=== PATIENT | male | born 1945 | race Caucasian/White ===

== ENCOUNTER 2018-01-30 06:47 | Day surgery (SDC) | payer MEDICARE, OTHER ==
[~2018-01-30 06:47] MED LIST: Buffered Lidocaine 0.9% SYRIN* 5 ML/SYR SYRINGE INTRADERM ONE
[2018-01-30] MEDS ORDERED: Bacitracin OINTMENT* 0.5% 0.5 oz TUBE ONE (07:55)
[2018-01-30] MEDS ORDERED: Lidocaine 4% TOPICAL* 50 ML TOP.SOLN ONE (07:55)
[2018-01-30] MEDS ORDERED: Oxymetazoline 0.05% NASAL SPR* 15 ML BTL ONE (07:55)
[2018-01-30] MEDS ORDERED: Lidocaine 1% MPF wEPI 200,000* 30 ML SDV ONE (07:55)
[2018-01-30] MEDS ORDERED: fentaNYL* 50 MCG/ML 2 ML VIAL (100 MCG VIAL) ONE ×2 (08:14→08:16)
[2018-01-30] MEDS ORDERED: Midazolam* 1 MG/ML 2 ML VIAL (2 MG) ONE (08:15)
[2018-01-30] MEDS ORDERED: Succinylcholine* 20 MG/ML 10 ML VIAL ONE (08:46)
[2018-01-30] MEDS ORDERED: Ondansetron INJ* 2 MG/ML VIAL ONE (08:46)
[2018-01-30] MEDS ORDERED: Propofol* 10 MG/ML 20 ML BTL IV PUSH ONE (08:46)
[2018-01-30] MEDS ORDERED: Dexamethasone IV* 4 MG/ML 1 ML (4 MG) ONE (08:46)
[2018-01-30] MEDS ORDERED: Lidocaine 2% PF * 5 ML VIAL ONE (08:46)
[2018-01-30] MEDS ORDERED: Ibuprofen TAB* 600 MG PO PRN (09:07)
[2018-01-30] MEDS ORDERED: Acetaminophen TAB* 325 MG PO PRN (09:07)
[2018-01-30] MEDS ORDERED: Naloxone* 0.4 MG/ML 1 ML VIAL IV PRN (09:07)
[2018-01-30 10:01] VITALS: BP 128/84
--- NOTE | 2018-01-30 21:06 | OP ---
DATE OF OPERATION: 01/30/18 - SDS DATE OF : 45 SURGEON: Raji Linda MD. ANESTHESIA: General laryngeal mask anesthesia. PRE-OP DIAGNOSES: Chronic sinusitis with nasal polyposis. POST-OP DIAGNOSES: Chronic sinusitis with nasal polyposis. OPERATIVE PROCEDURE: Bilateral endoscopic nasal polypectomy. COMPLICATIONS: None. SPECIMENS: Left and right nasal polyps. 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 DESCRIPTION OF PROCEDURE: The patient was taken to the operating room, placed in a supine position on the operating room table. General anesthesia induced. He was maintained with laryngeal mask airway anesthesia. Nose was packed with cottonoids impregnated with oxymetazoline and 4% lidocaine and draped in a sterile fashion. The packs were removed. He had more polyps on the right in this frontal recess ostiomeatal unit and the anterior and posterior ethmoid regions. These were injected with 1% lidocaine with 1:100,000 epinephrine. Some frontal sinus recess polyps were injected on the left side. Using the straight and 45 degree Blakesley, I did the polypectomy. This left him with previous extensive resections that he had without any evidence of disease. The surgery was done bilaterally to remove the polyps. The pathology was sent for evaluation. Extubated uneventfully and transferred to recovery room in stable condition. [id number]/[facility] #: [id number] EMIL
== END 2018-01-30 10:22 | disposition home or self-care (01) ==
LOC: OR 06:47
PROVIDERS: ATTEND Otolaryngology
DX: J33.8 Other polyp of sinus (principal); Z85.818 Personal history of malignant neoplasm of other sites of lip, oral cavity, and pharynx; J30.2 Other seasonal allergic rhinitis
CPT/HCPCS: 88304; A9270-GY; J0330; J1100; J2001; J2250; J2405; J2704; J3010

== ENCOUNTER 2019-05-23 09:29 | Observation (INO) | payer MEDICARE, OTHER ==
--- OUTSIDE RECORDS SUMMARY | 2019-05-23 09:52 | XMS REPORT | Continuity of Care Document ---
:1945 External Reference #:[id number] Author Name Adeola Neumann PA-C Address [address] [place] [address] Care Team Providers Name Role Phone Atilio ERICKSON, Saul Care Team Information Skilled Nursing Facilities Professional Unavailable Og Corcoran M.D. Primary Care Physician Unavailable Payers Date Identification Numbers Payment Provider Subscriber Policy Number: [id number] [place] Apple Bright PayID: [id number] [address] [place] [address] Policy Number: [id number] [facility] Apple Bright Group Name: [employer] Benefit Plans [address] PayID: [id number] [place] [address] Problems Active Problems Provider Date Esophageal dysphagia Apple Linda M.D. 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 Onset: 09/22/2014 Asymmetrical sensorineural hearing loss Apple Linda M.D. 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 Tobacco Use Start: Unknown Never Smoked Cigarettes Tobacco Use Start: Unknown has never smoked cigars Tobacco Use Start: Unknown has never smoked a pipe Smokeless Tobacco has never used smokeless tobacco ETOH Use Current Alcohol Use Occasionally Tobacco Use Start: Unknown Patient has never smoked Smoking Status Reviewed: 03/04/19 Patient has never smoked Allergies, Adverse Reactions, Alerts Active Allergies Reaction Severity Comments Date Augmentin 04/03/2007 Amoxicillin 06/22/2014 Clindamycin 01/23/2018 Medications Active Medications SIG Qnty Indications Ordering Provider Date Sulfamethoxazole/Trim take 1 pill 2 28tabs Apple Freitas 03/06/2019 ethoprim DS times a day for Tierra Linda 800-160mg 14 days. Tablets Ofloxacin (Otic) instill 3-4 drops 10ml H90.3 Apple Freitas 03/04/2019 0.3% to the right ear Tierra Linda Solution 2 times a day for 10 days. Fluticasone 2 sprays in each 48gm J33.8 Apple Freitas 03/26/2018 Propionate nostril everyday Tierra Linda 50mcg/Act Suspension Lumigan apply to eyes qhs Darci Calderon Timolol Maleate apply to eyes bid Darci Calderon 0.5% MD Solution Benadryl Allergy as needed Unknown 25mg Capsules Rosuvastatin Calcium Og Corcoran MYolie 5mg Tablets History Medications Levofloxacin 1 by mouth 10tabs J01.30 Apple Freitas 12/05/2017 - 500mg every day Tierra Linda 12/17/2017 Tablets Benzonatate take 1 capsue 180caps R05 Apple Freitas 06/25/2017 - 200mg by 3 times per Tierra Linda 12/05/2017 Capsules day for as needed for cough Atrovent 2 sprays in 1units 472.0 Apple Freitas 10/10/2010 - 0.06% each nostril Tierra Linda 06/22/2014 Solution qid prn rhinitis Flonase 2 sprays in 1units Apple Freitas 03/21/2006 - 50mcg/[place] each nostril qd Tierra Linda 04/03/2007 Suspension Singulair 1 po qd 30tabs 477.8 Apple Freitas 03/21/2006 - 10mg Tierra Linda 04/03/2007 Tablets Glucosamine Unknown 03/20/2006 - Chondroitin 11/11/2008 Proscar Unknown - 5mg Tablets 04/03/2007 None Unknown - 06/22/2014 Antihistamine prn Self - Decongestant 05/09/2017 Levofloxacin 1 by mouth Og Corcoran M.D. - 500mg every day 09/26/2016 Tablets Hydrocodone Andres Pio - Bitartrate/Acetamino M.DAdal 05/09/2017 phen 5-300mg Tablets Levofloxacin 1 by mouth 10tabs Og Corcoran M.D. - 500mg every day 09/26/2016 Tablets Flonase Allergy as needed Self - Relief 12/05/2017 50mcg/Act Suspension Sildenafil Citrate Og Corcoran M.D. - 12/05/2017 100mg Tablets Rosuvastatin Calcium Og Corcoran M.D. - 12/05/2017 5mg Tablets Vital Signs Date Vital Result Comment 05/16/2019 2:05pm Weight 224.00 lb Weight 101.606 kg Height 77 inches 6'5" Height in cm's 195.6 cm BMI (Body Mass Index) 26.6 kg/m2 03/04/2019 10:58am Body Temperature 97.4 F Weight 224.00 lb Weight 101.606 kg Height 77 inches 6'5" Height in cm's 195.6 cm BMI (Body Mass Index) 26.6 kg/m2 09/17/2018 8:37am Weight 224.00 lb Weight 101.606 kg Height 77 inches 6'5" Height in cm's 195.6 cm BMI (Body Mass Index) 26.6 kg/m2 07/10/2018 2:11pm Weight 223.00 lb Weight 101.153 kg Height 77 inches 6'5" Height in cm's 195.6 cm BMI (Body Mass Index) 26.4 kg/m2 03/26/2018 2:43pm Weight 223.00 lb Weight 101.153 kg Height 77 inches 6'5" Height in cm's 195.6 cm BMI (Body Mass Index) 26.4 kg/m2 01/23/2018 3:18pm BP Systolic 153 mmHg BP Diastolic 95 mmHg Heart Rate 82 /min Respiratory Rate 18 /min Weight 223.00 lb Weight 101.153 kg Height 77 inches 6'5" Height in cm's 195.6 cm BMI (Body Mass Index) 26.4 kg/m2 12/05/2017 4:00pm Respiratory Rate 17 /min Weight 220.00 lb Weight 99.792 kg Height 77 inches 6'5" Height in cm's 195.6 cm BMI (Body Mass Index) 26.1 kg/m2 06/25/2017 2:23pm BP Systolic 160 mmHg BP Diastolic 97 mmHg Heart Rate 70 /min Respiratory Rate 17 /min Weight 220.00 lb Weight 99.792 kg Height 77 inches 6'5" Height in cm's 195.6 cm BMI (Body Mass Index) 26.1 kg/m2 05/09/2017 9:39am BP Systolic 155 mmHg BP Diastolic 101 mmHg Heart Rate 72 /min Respiratory Rate 17 /min Weight 220.00 lb Weight 99.792 kg Height 77 inches 6'5" Height in cm's 195.6 cm BMI (Body Mass Index) 26.1 kg/m2 BP Systolic Sitting 139 mmHg BP Diastolic Sitting 91 mmHg 09/26/2016 2:30pm BP Systolic 126 mmHg BP Diastolic 69 mmHg Heart Rate 88 /min Respiratory Rate 17 /min Weight 211.00 lb Weight 95.710 kg Height 77 inches 6'5" Height in cm's 195.6 cm BMI (Body Mass Index) 25.0 kg/m2 06/12/2016 11:23am BP Systolic 144 mmHg BP Diastolic 85 mmHg Heart Rate 75 /min Respiratory Rate 17 /min Weight 211.00 lb Weight 95.710 kg Height 77 inches 6'5" Height in cm's 195.6 cm BMI (Body Mass Index) 25.0 kg/m2 09/22/2014 9:55am BP Systolic 144 mmHg BP Diastolic 85 mmHg Heart Rate 83 /min Respiratory Rate 17 /min Weight 215.00 lb Weight 97.524 kg Height 77 inches 6'5" Height in cm's 195.6 cm BMI (Body Mass Index) 25.5 kg/m2 07/13/2014 10:21am BP Systolic 140 mmHg BP Diastolic 89 mmHg Heart Rate 72 /min Respiratory Rate 17 /min Weight 215.00 lb Weight 97.524 kg Height 77 inches 6'5" Height in cm's 195.6 cm BMI (Body Mass Index) 25.5 kg/m2 07/13/2014 9:43am BP Systolic 170 mmHg BP Diastolic 96 mmHg Heart Rate 81 /min Respiratory Rate 17 /min Weight 249.00 lb Weight 112.946 kg Height 69.50 inches 5'9.50" Height in cm's 176.5 cm BMI (Body Mass Index) 36.2 kg/m2 06/22/2014 2:38pm BP Systolic 140 mmHg BP Diastolic 85 mmHg Heart Rate 84 /min Respiratory Rate 17 /min Weight 215.00 lb Weight 97.524 kg Height 77 inches 6'5" Height in cm's 195.6 cm BMI (Body Mass Index) 25.5 kg/m2 11/11/2008 2:23pm BP Systolic 137 mmHg BP Diastolic 80 mmHg Heart Rate 82 /min Respiratory Rate 16 /min 04/03/2007 4:19pm BP Systolic 117 mmHg BP Diastolic 80 mmHg Heart Rate 87 /min Respiratory Rate 16 /min 03/21/2006 2:13pm BP Systolic 117 mmHg BP Diastolic 67 mmHg Heart Rate 75 /min Respiratory Rate 16 /min Results Test Date Facility Test Result H/L Range Note Wound [facility] Wound/Misc SEE RESULT 1 Culture/Sensi 9 c/o Department of Laboratories [place] [address] Stain [phone] Laboratory test [facility] Surgical SEE RESULT 2 finding 8 c/o Department of Laboratories Pathology [place], [place] [address] [phone] Creatinine [facility] Creatinine 1.00 mg/dL N 0.67-1.17 4 c/o Department of Laboratories [place], [place] [id number] [phone] Egfr Non- 74.3 N >60 Egfr 95.6 N >60 3 Xray 07/27/2006 [facility] [place] [facility] [place] Soft Tissue Neck With no tumor [address] Contrast [place], [place] [address] [phone] Xray 06/28/2006 [facility] CT Soft Tissue Neck no disease [address] [place] [address] [phone] CT Abdomen With Contrast lymphadenopathy CT Chest With Contrast lymphadenopathy Laboratory test finding 06/26/2006 [facility] BUN normal c/o [place] [address] [phone] Creatinine normal Laboratory test 06/26/2006 [facility] Other lab test negative finding c/o Department of Laboratories - see note [place] [address] [phone] 1 SEE RESULT BELOW Name: APPLE BRIGHT : [address]: Adeola Neumann PA-C Acct: [id number] Unit: [id number] AGE: 73 Location: [facility] Re03/04/19 SEX: M Status: REG REF SPEC: [id number] LEE: 03/04/19-1113 [facility] DR: Adeola Negrete REQ: [id number] RECD: 03/04/19 STATUS: COMP _ SOURCE: MISC SOURC SPDESC: ORDERED: Culture Stain COMMENTS: Right ear otorrhea [id number] Specimen Description Right ear otorrhea Procedure Result Reported Site Wound/Misc Gram Stain Final 03/04/19- 1742 ML 1+ Epithelial Cells 4+ Neutrophils 1+ Gram Positive Cocci Wound/Misc Culture Final 03/06/19- 0910 ML Organism 1 MRSA Quantity 2+ 1. MRSA M.I.C. RX --------- ------ Penicillin >=0.5 R Clindamycin <=0.25 S Erythromycin >=8 R Gentamicin <=0.5 S Linezolid 2 S Oxacillin >=4 R * Quinupristin/Dalfopristin <=0.25 S Rifampin <=0.5 S Tetracycline <=1 S Doxycycline - Deduced S * Minocycline - Deduced S Trimethoprim/Sulfamethoxazole <=10 S Vancomycin 1 S Imipenem-Deduced R CONTINUED ON NEXT PAGE DEPARTMENT OF PATHOLOGY, [address] [place] [address] Ajay Hernandez M.D. Director [facility] # [id number] Patient: APPLE BRIGHT [id number] (Continued) Specimen: [id number] Collected: 04/30/19-1113 Received: 03/04/19-1612 (Continued) Procedure Result Reported Site Wound/Misc Culture Final (continued) 03/06/19909 1. MRSA (continued) M.I.C. RX --------- ------ * Ampicillin/Sulbactam-Deduced R Cefazolin-Deduced R * These antibiotics are not available in the [facility] Formulary Contact the Microbiology Department for any additional antibiotic reporting. * ML - Main Lab . END OF REPORT DEPARTMENT OF PATHOLOGY, [address] [place] [address] Ajay Hernandez M.D. Director [facility] # [id number] 2 SEE RESULT BELOW Name: APPLE BRIGHT : [address]: Apple Linda MD Acct: [id number] Unit: [id number] AGE: 72 Location: OR Re01/30/18 SEX: M Status: DEP SDC SPEC: [id number] LEE: 01/30/1825 [facility] DR: Apple Linda MD REQ: [id number] RECD: 01/30/18 STATUS: SOUT _ ORDERED: LEVEL 3/2 FINAL DIAGNOSIS 1. Left nasal cavity, excision: -- Benign sinonasal polyps. 2. Right nasal cavity, excision: -- Benign sinonasal polyps. PRE-OPERATIVE DIAGNOSIS Polyp of sinus, right; bilateral sinusitis GROSS DESCRIPTION 1. The specimen is received in formalin labeled, Left Nasal Polyps, and consists of a 1.1 x 1.1 x 0.5 cm aggregate of kelley-pink irregular to polypoid soft tissue fragments admixed with scant red-brown blood clot which is submitted entirely in one cassette. 2. The specimen is received in formalin labeled, Right Nasal Polyps, and consists of a 3.2 x 2.0 by up to 1.1 cm aggregate of kelley-pink irregular to polypoid soft tissue fragments admixed with scant red-brown blood clot. Entirely submitted, two cassettes. Signed (signature on file) Deann Silva MD 1002 END OF REPORT DEPARTMENT OF PATHOLOGY, [address] [place] [address] Ajay Hernandez M.D. Director [facility] # [id number] 3 Because ethnic data is not always readily available, this report includes an eGFR for both -Americans and non- Americans. The National Kidney Disease Education Program (NKDEP) does not endorse the use of the MDRD equation for patients that are not between the ages of 18 and 70, are , have extremes of body size, muscle mass, or nutritional status, or are non- or non-. According to the National Kidney Foundation, irrespective of diagnosis, the stage of the disease is based on the level of kidney function: Stage Description GFR(mL/min/1.73 m(2)) 1 Kidney damage with normal or decreased GFR 90 2 Kidney damage with mild decrease in GFR 60-89 3 Moderate decrease in GFR 30-59 4 Severe decrease in GFR 15-29 5 Kidney failure <15 (or dialysis) Procedures Date Code Description Status 05/16/2019 71387 Binocular Microscopy Completed 03/14/2019 01163 Nasopharyngoscopy Completed 03/04/2019 05848 Binocular Microscopy Completed 07/10/2018 80227 Auditory, Middle Ear, Other Procedure, Hospital Completed 01/30/2018 46793 Nasal Endoscopy W/ Debridement Completed 06/25/2017 32613 Demonstration/Eval. Of Patient Utilization Of Completed Spacer/Nebulizer 06/25/2017 85567 Inhalation Treatment Pressurized Or Nonpres.Acute Completed Airwy.Obstruct. 06/25/2017 56683 Bronchospasm Evaluation Completed 06/25/2017 85944 Tympanometry Completed 06/25/2017 99289 Comprehensive Audiogram Completed 05/09/2017 12337 Eval Of Swallowing Function Oral Completed 05/09/2017 69378 Flex Fiberoptic End Of Swallow Ta Completed 09/26/2016 20620 Tympanometry Completed 09/26/2016 88799 Comprehensive Audiogram Completed 06/22/2014 46786 Tympanometry Completed 06/22/2014 57042 Comprehensive Audiogram Completed 02/03/2009 19241 Flex Fiberoptic End Of Swallow Ta Completed 02/03/2009 09878 Eval Of Swallowing Function Oral Completed 01/20/2009 02847 No Show Fee Completed 11/11/2008 37758 Fiberoptic Laryngoscopy Completed 06/22/2006 17695 Fiberoptic Laryngoscopy Completed 03/21/2006 73828 Endoscopy Nasal/Sinus Max Sinusco Completed Encounters Type Date Location Provider Dx Diagnosis Office Visit 05/16/2019 [place] Adeola Neumann 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 serous 1:45p 11/05/07 PA-C otitis media, right ear Z85.819 Prsnl hx of malig neoplm of unsp site lip,oral cav,& pharynx J31.1 Chronic nasopharyngitis Office Visit 03/04/2019 10:45a [place] 11/05/07 Adeola Neumann 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 serous PA-C otitis media, right ear J33.8 Other polyp of sinus H90.3 Sensorineural hearing loss, bilateral Office Visit 09/17/2018 8:30a [place],[facility] Apple Freitas 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 11/05/07 T[place] Linda serous otitis media, right ear J33.8 Other polyp of sinus H90.3 Sensorineural hearing loss, bilateral Office Visit 03/26/2018 2:45p [place],After 11/05/07 Apple Quintero33.8 Other polyp [place] Linda of sinus 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, right ear Office Visit 01/23/2018 3:15p [place],After 11/05/07 Apple Quintero33.8 Other polyp [place] Linda of sinus Office Visit 12/17/2017 11:15a [place],After 11/05/07 Apple Quintero33.8 Other polyp [place] Linda of sinus Office Visit 12/05/2017 3:45p [place],[facility] 11/05/07 Apple Quintero33.8 Other polyp [place] Linda of sinus J01.30 Acute sphenoidal sinusitis, unspecified Office Visit 06/25/2017 3:15p [place],After 11/05/07 Apple Linda, R05 Berhane Mayorga Z85.819 Prsnl hx of malig neoplm of [email or web address] site lip,oral cav,& pharynx H90.3 Sensorineural hearing loss, bilateral Office Visit 09/26/2016 [place] Apple Freitas H90.3 Sensorineural 2:30p 11/05/07 Tierra Linda hearing loss, bilateral H65.01 Acute serous otitis media, right ear Office Visit 06/12/2016 [place] Apple Freitas H90.3 Sensorineural 11:30a 11/05/07 Tierra Linda hearing loss, bilateral H65.01 Acute serous otitis media, right ear Office 09/22/2014 [place] Apple Freitas 462-2 Sore Throat Visit 9:45a 11/05/07 Tierra Linda Office 07/13/2014 [place] Apple Freitas 389.16 Sensorineural Hearing Visit 10:15a 11/05/07 Hai Linda, Asymmetrical M.D. Office 06/22/2014 [place] Apple Freitas 389.16 Sensorineural Hearing Visit 2:30p 11/05/07 Hai Linda, Asymmetrical M.D. 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 at [place] ,After 11/05/806 - ORTEGA Davison-C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 serous otitis media, right earZ85.819 Personal history of malignant neoplasm of unspecified site oJ31.1 Chronic nasopharyngitis
--- OUTSIDE RECORDS SUMMARY | 2019-05-23 09:52 | XMS REPORT | Continuity of Care Document ---
:1945 External Reference #:[id number] Author Name Apple Linda M.D. Address [address] [place] [address] Care Team Providers Name Role Phone Atilio ERICKSON, Saul Care Team Information Prison Librarian Unavailable Og Corcoran M.D. Primary Care Physician Unavailable Payers Date Identification Numbers Payment Provider Subscriber Policy Number: [id number] [place] Apple Bright PayID: [id number] [address] [place] [address] Policy Number: [id number] [facility] Apple Bright Group Name: [facility] Serv Benefit Plans [address] PayID: [id number] [place] [address] Problems Active Problems Provider Date Esophageal dysphagia Apple Linda M.D. 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 Onset: 09/22/2014 Asymmetrical sensorineural hearing loss Apple Linda M.D. 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 5mg Tablets History Medications Sulfamethoxazole/Trimethoprim DS take 1 pill 28tabs Apple Freitas 03/06/2019 - 800-160mg 2 times a Maddi, 05/19/2019 Tablets day for 14 M.D. days. Ofloxacin (Otic) instill 3-4 10ml H90. Apple Freitas 03/04/2019 - 0.3% Solution drops to the 3 Maddi, 05/19/2019 right ear 2 M.D. times a day for 10 days. Fluticasone Propionate 2 sprays in 48gm J33. Apple Freitas 03/26/2018 - 50mcg/Act Suspension each nostril 8 Maddi, 05/19/2019 everyday M.DAdal Levofloxacin 1 by mouth 10tabs J01. Apple Freitas 12/05/2017 - 500mg Tablets every day 30 Maddi, 12/17/2017 M.D. Benzonatate take 1 180caps R05 Apple Freitas 06/25/2017 - 200mg Capsules capsue by 3 Maddi, 12/05/2017 times per M.D. day for as needed for cough Atrovent 2 sprays in 1units 472. Apple Freitas 10/10/2010 - 0.06% Solution each nostril 0 Maddi, 06/22/2014 qid prn M.D. rhinitis Flonase 2 sprays in 1units Apple Freitas 03/21/2006 - 50mcg/[place] Suspension each nostril Maddi, 04/03/2007 qd M.D. Singulair 1 po qd 30tabs 477. Apple Freitas 03/21/2006 - 10mg Tablets 8 Maddi 04/03/2007 M.D. Glucosamine Chondroitin Unknown 03/20/2006 - 11/11/2008 Proscar 5mg Unknown - Tablets 04/03/2007 None Unknown - 06/22/2014 Antihistamine Decongestant prn Self - 05/09/2017 Levofloxacin 1 by mouth Og Corcoran - 500mg Tablets every day M.D. 09/26/2016 Hydrocodone Pio Campos - Bitartrate/Acetaminophen M.D. 05/09/2017 5-300mg Tablets Levofloxacin 1 by mouth 10tabs Og Corcoran - 500mg Tablets every day M.D. 09/26/2016 Flonase Allergy Relief as needed Self - 50mcg/Act Suspension 12/05/2017 Sildenafil Citrate Og Corcoran - 100mg Tablets M.D. 12/05/2017 Rosuvastatin Calcium Og Corcoran - 5mg Tablets M.D. 12/05/2017 Vital Signs Date Vital Result Comment 05/20/2019 3:44pm Weight 224.00 lb Weight 101.606 kg Height 77 inches 6'5" Height in cm's 195.6 cm BMI (Body Mass Index) 26.6 kg/m2 05/16/2019 2:05pm Weight 224.00 lb Weight 101.606 [...] Facility Test Result H/L Range Note Wound [facility] Wound/Misc SEE RESULT 1 Culture/Sensi 9 c/o Department of Laboratories [place] [address] Stain [phone] Laboratory test [facility] Surgical SEE RESULT 2 finding 8 c/o Department of Laboratories [place] [address] [phone] Creatinine [facility] Creatinine 1.00 mg/dL N 0.67-1.17 4 c/o Department of Laboratories [place], [place] [id number] [phone] Egfr Non- 74.3 N >60 Egfr 95.6 N >60 3 Xray 07/27/2006 [facility] MRI Soft Tissue Neck With no tumor [address] [place] [address] [phone] Xray 06/28/[address] [facility] [address] Soft Tissue Neck no disease [address] [place] [address] [phone] CT Abdomen With Contrast lymphadenopathy CT Chest With Contrast lymphadenopathy Laboratory test finding 06/26/2006 [facility] BUN normal c/o Department [place] [address] [phone] Creatinine normal Laboratory test 06/26/2006 [facility] Other lab test negative finding c/o Department of Laboratories [place] [address] [phone] 1 SEE RESULT BELOW Name: APPLE BRIGHT : [address]: Adeola Neumann PA-C Acct: [id number] Unit: [id number] AGE: 73 Location: [facility] Re03/04/19 SEX: M Status: REG REF SPEC: [id number] LEE: 03/04/19-[address] [facility] [address]: Adeola Negrete REQ: [id number] RECD: 03/04/19 STATUS: COMP _ [facility] SPDES[facility]: ORDERED: Culture Stain COMMENTS: Right ear otorrhea [id number] Specimen Description Right ear otorrhea Procedure Result [...] CONTINUED ON NEXT PAGE DEPARTMENT OF PATHOLOGY, [address] [place] [address] Ajay Hernandez M.D. Director [facility] # [id number] Patient: APPLE BRIGHT [id number] (Continued) Specimen: [id number] Collected: 03/04/19-1112 Received: 03/04/19-161 (Continued) Procedure Result Reported Site Wound/Misc Culture Final (continued) 03/06/19- 909 1. MRSA (continued) M.I.C. RX --------- ------ * Ampicillin/Sulbactam-Deduced R Cefazolin-Deduced R * These antibiotics are not available in the [facility] Formulary Contact the Microbiology Department for any additional antibiotic reporting. * ML - Main Lab . END OF REPORT DEPARTMENT OF PATHOLOGY, [address], [place], [place] [address] Ajay Hernandez M.D. Director DORYS # [id number] 2 SEE RESULT BELOW Name: APPLE BRIGHT : [address]: Apple Linda MD Acct: [id number] Unit: [id number] AGE: 72 Location: OR Re01/30/18 SEX: M Status: DEP SD SPEC: [id number] LEE: 01/30/[address] [facility] [address]: Apple Linda MD REQ: [id number] RECD: 01/30/18 STATUS: SOUT _ ORDERED: LEVEL [...] 1002 END OF REPORT DEPARTMENT OF PATHOLOGY, [address] [place] [address] Ajay Hernandez M.D. Director [facility] # [id number] 3 Because ethnic data is not always [...] dialysis) Procedures Date Code Description Status 05/16/2019 81977 Binocular Microscopy Completed 03/14/2019 23012 Nasopharyngoscopy Completed 03/04/2019 72694 Binocular Microscopy Completed 07/10/2018 35116 Auditory, Middle Ear, Other Procedure, Hospital Completed 01/30/2018 13132 Nasal Endoscopy W/ Debridement Completed 06/25/2017 44527 Demonstration/Eval. Of Patient Utilization Of Completed Spacer/Nebulizer 06/25/2017 31617 Inhalation Treatment Pressurized Or Nonpres.Acute Completed Airwy.Obstruct. 06/25/2017 78211 Bronchospasm Evaluation Completed 06/25/2017 27530 Tympanometry Completed 06/25/2017 80252 Comprehensive Audiogram Completed 05/09/2017 35736 Eval Of Swallowing Function Oral Completed 05/09/2017 65171 Flex Fiberoptic End Of Swallow Ta Completed 09/26/2016 21671 Tympanometry Completed 09/26/2016 23260 Comprehensive Audiogram Completed 06/22/2014 70171 Tympanometry Completed 06/22/2014 14411 Comprehensive Audiogram Completed 02/03/2009 21685 Flex Fiberoptic End Of Swallow Ta Completed 02/03/2009 25675 Eval Of Swallowing Function Oral Completed 01/20/2009 52039 No Show Fee Completed 11/11/2008 73168 Fiberoptic Laryngoscopy Completed 06/22/2006 52054 Fiberoptic Laryngoscopy Completed 03/21/2006 92824 Endoscopy Nasal/Sinus Max Sinusco Completed Encounters Type Date Location Provider Dx Diagnosis Office Visit 05/20/2019 [place],After Apple Freitas H92.11 Otorrhea, right 3:45p 11/05/07 [place] Linda ear Office Visit 05/16/2019 [place] Adeola Neumann 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 serous 1:45p 11/05/07 PA-C otitis media, right ear Z85.819 Prsnl hx of malig neoplm of unsp site lip,oral cav,& pharynx J31.1 Chronic nasopharyngitis Office Visit 03/04/2019 10:45a [place],After 11/05/07 Adeola Neumann 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 serous PA-C otitis media, right ear J33.8 Other polyp of sinus H90.3 Sensorineural hearing loss, bilateral Office Visit 09/17/2018 8:30a [place],After Apple Freitas 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 11/05/07 [place] Linda serous otitis media, right ear J33.8 Other polyp of sinus H90.3 Sensorineural hearing loss, bilateral Office Visit 03/26/2018 2:45p [place],After 11/05/07 Apple Quintero33.8 Other polyp [place] Linda of sinus 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, right ear Office Visit 01/23/2018 3:15p [place],After 11/05/07 Apple Freitas J33.8 Other polyp [place] Linda of sinus Office Visit 12/17/2017 11:15a [place],After 11/05/07 Apple Freitas J33.8 Other polyp [place] Linda of sinus Office Visit 12/05/2017 3:45p [place],After 11/05/07 Apple Freitas J33.8 Other polyp [place] Linda of sinus J01.30 Acute sphenoidal sinusitis, unspecified Office Visit 06/25/2017 3:15p [place],After 11/05/07 Apple Linda, R05 Cough iTerra Z85.819 Prsnl hx of malig neoplm of unsp site lip,oral cav,& pharynx H90.3 Sensorineural hearing loss, bilateral Office Visit 09/26/2016 [place] Apple Freitas H90.3 Sensorineural 2:30p 11/05/07 [place] Linda hearing loss, bilateral H65.01 Acute serous otitis media, right ear Office Visit 06/12/2016 [place],After Apple Freitas H90.3 Sensorineural 11:30a 11/05/07 [place] hearing loss, bilateral H65.01 Acute serous otitis media, right ear Office 09/22/2014 [place],After Apple Freitas 462-2 Sore Throat Visit 9:45a 11/05/07 [place] Linda Office 07/13/2014 [place] Apple Freitas 389.16 Sensorineural Hearing Visit 10:15a 11/05/07 Hai Linda, Asymmetrical M.D. Office 06/22/2014 [place],After Apple Freitas 389.16 Sensorineural Hearing Visit 2:30p 11/05/07 Hai Linda, Asymmetrical M.D. 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 at [place] ,After 11/05/806 - Apple Linda M.D.H92.11 Otorrhea, right earNew Medication:Ciprodex 0.3-0.1 % - 4 drops in right ear twice a dayComments: The patient has been having right ear otorrhea. Some of this might be normal. His eustachian tube isscarred over and he had an effusion. that is why the tube was put in. but he did not have it for thefirst 6 months of having the tube. The drainage is clear without any evidence of infection. I am going to have him use a steroid based ear drop and he will FU in June.
[2019-05-23] MEDS ORDERED: Morphine 4 MG/ML VIAL (1 ml) 4 MG/ML VIAL IV ONE ×2 (09:53→11:41)
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
[2019-05-23 10:34] LABS: ABS Basophils 0.1 10^3/ul (0-0.2); ABS Eosinophils 0.2 10^3/ul (0-0.6); ABS Lymphocytes 2.2 10^3/ul (1.0-4.8); ABS Monocytes 0.8 10^3/ul (0-0.8); ABS Neutrophils 4.6 10^3/ul (1.5-7.7); Hematocrit 41 % (42-52); Hemoglobin 14.1 g/dL (14.0-18.0); Lymphocyte % 27.5 %; Mean Corpuscular HGB Conc 34 g/dL (31-36); Mean Corpuscular Hemoglobin 34 pg (27-31); Mean Corpuscular Volume 100 fL (80-94); Mean Platelet Volume 6.3 fL (7.4-10.4); Platelet Count 244 10^3/uL (150-450); Red Blood Count 4.11 10^6 /uL (4.18-5.48); Red Cell Distribution Width 14 % (10-15); White Blood Count 7.9 10^3/uL (3.5-10.8)
[2019-05-23 10:51] LABS: Albumin 4.3 g/dL (3.2-5.2); Albumin/Globulin Ratio 1.7 (1-3); BUN/Creatinine Ratio 15.3 (8-20); Calcium 9.8 mg/dL (8.6-10.3); EGFR African American 90.7 (>60); Globulin 2.6 g/dL (2-4); Potassium 4.5 mmol/L (3.5-5.0); Total Bilirubin 0.8 mg/dL (0.2-1.0); Total Protein 6.9 g/dL (6.4-8.9)
[2019-05-23] MEDS ORDERED: Iohexol 300* (CONTRAST) 10 ML SDV IV ONE (11:07)
[2019-05-23] MEDS ORDERED: cefTRIAXone(*) 1 GM in NS 0.9% 50 ML* 50 ML IVPB ONE (11:40)
[2019-05-23] MEDS ORDERED: NS 0.9% 1000 ML** 1,000 ML IV ONE (12:59)
[2019-05-23] MEDS ORDERED: Ondansetron INJ* 2 MG/ML VIAL IV PRN ×2 (13:58→20:24)
[2019-05-23] MEDS ORDERED: Lactated Ringers 1000 ML Bag* 1,000 ML IV SCH ×2 (14:00→16:00)
[2019-05-23] MEDS: Morphine 10 MG/ML VIAL (1 ml) IV PRN ×2 (14:54→23:01)
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
[2019-05-23] MEDS ORDERED: Buffered Lidocaine 1% SYRIN* 1 ML/SYRINGE INTRADERM ONE (15:24)
[2019-05-23] MEDS ORDERED: fentaNYL* 50 MCG/ML 2 ML VIAL (100 MCG VIAL) ONE ×3 (16:34→20:02)
[2019-05-23] MEDS ORDERED: Midazolam* 1 MG/ML 2 ML VIAL (2 MG) ONE (16:35)
[2019-05-23] MEDS ORDERED: Famotidine IV* 10 MG/ML 2 ML (20 mg) ONE (16:56)
[2019-05-23] MEDS ORDERED: Propofol* 10 MG/ML 20 ML BTL ONE (17:43)
[2019-05-23] MEDS ORDERED: ceFAZolin VIAL(*) VIAL ONE (17:43)
[2019-05-23] MEDS ORDERED: Dexamethasone IV* 4 MG/ML 1 ML (4 MG) ONE (17:43)
[2019-05-23] MEDS ORDERED: Ketorolac INJ* 30 MG/ML 1 ML VIAL ONE (17:43)
[2019-05-23] MEDS ORDERED: Ondansetron INJ* 2 MG/ML VIAL ONE (17:43)
[2019-05-23] MEDS ORDERED: Bupivacaine 0.25% EPI 200,000* 30 ML SDV ONE (17:53)
[2019-05-23] MEDS ORDERED: EPHEDrine (Pressors)* 50 MG/ML VIAL ONE (18:30)
[2019-05-23] MEDS ORDERED: diPHENhydraMINE IV* 50 MG/ML 1 ml VIAL (BENADRYL) IV PRN (20:24)
[2019-05-23] MEDS ORDERED: Naloxone* 0.4 MG/ML 1 ML VIAL IV PRN (20:24)
[2019-05-23] MEDS ORDERED: fentaNYL* 50 MCG/ML 2 ML VIAL (100 MCG VIAL) IV PRN (20:24)
[2019-05-23] MEDS ORDERED: Acetaminophen IV 1GM/100ML * 1,000 MG/100 ML VIAL IVPB ONE (20:24)
[2019-05-23] MEDS ORDERED: HYDROcodone/ACETAMIN 5-325 MG* 1 TAB PO PRN (20:24)
[2019-05-23] MEDS ORDERED: Acetaminophen IV 1GM/100ML * 100 ML ONE (20:42)
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
[2019-05-23] MEDS ORDERED: Acetaminophen TAB* 325 MG PO PRN (23:19)
[2019-05-23] MEDS: Cephalexin CAP* 500 MG PO SCH (23:54)
[2019-05-23] MEDS: Heparin VIAL(*) 5000 UNITS/ML VIAL (FIVE THOUSAND) SUBCUT SCH (23:55)
[2019-05-24] MEDS: HYDROcodone/ACETAMIN 5-325 MG* 1 TAB PO PRN ×2 (03:41→10:53)
[2019-05-24] MEDS: Morphine 10 MG/ML VIAL (1 ml) IV PRN (08:32)
[2019-05-24] MEDS: Cephalexin CAP* 500 MG PO SCH (08:33)
[2019-05-24] MEDS: Heparin VIAL(*) 5000 UNITS/ML VIAL (FIVE THOUSAND) SUBCUT SCH (08:33)
[2019-05-24 08:35] VITALS: BP 146/83
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
== END 2019-05-24 10:56 | disposition home or self-care (01) ==
LOC: ED 09:29 → SDS 13:58 → SSU 21:30
PROVIDERS: ADMIT Orthopaedic Surgery; ATTEND Physician Assistant
DX: S52.022B Displaced fracture of olecranon process without intraarticular extension of left ulna, initial encounter for open fracture type I or II (principal); S52.501A Unspecified fracture of the lower end of right radius, initial encounter for closed fracture; R07.81 Pleurodynia; M25.562 Pain in left knee; V19.3XXA Pedal cyclist (driver) (passenger) injured in unspecified nontraffic accident, initial encounter; Y93.55 Activity, bike riding; Y92.9 Unspecified place or not applicable; Z88.0 Allergy status to penicillin; Z79.899 Other long term (current) drug therapy; E78.5 Hyperlipidemia, unspecified; Z86.69 Personal history of other diseases of the nervous system and sense organs; Z87.891 Personal history of nicotine dependence
CPT/HCPCS: 36415; 70450; 71260; 72125; 74177; 76000; 80053; 83605; 84484; 85025; 93005; 96361; 96365; 96372; 96375; 96376; 99284; A9270-GY; G0378; J0690; J0696; J1100; J1644; J1885; J2250; J2270; J2405; J2704; J3010; Q9967

== ENCOUNTER 2019-06-09 11:52 | Day surgery (SDC) | payer MEDICARE, OTHER ==
[~2019-06-09 11:52] MED LIST changes: -Buffered Lidocaine 0.9% SYRIN* 5 ML/SYR SYRINGE INTRADERM ONE; +Buffered Lidocaine 1% SYRIN* 1 ML/SYRINGE INTRADERM ONE; +Dexamethasone IV* 4 MG/ML 1 ML (4 MG) IV SLOW PU ONE; +Famotidine TAB* 20 MG PO ONE; +Lactated Ringers 1000 ML Bag* 1,000 ML IV SCH
[2019-06-09] MEDS ORDERED: Lidocaine 1% MPF ** 5 ML VIAL ONE (12:05)
[2019-06-09] MEDS ORDERED: ROPIVACAINE 5 MG/ML 30 ML BTL (0.5%) ONE (12:05)
[2019-06-09] MEDS ORDERED: Dexamethasone IV* 4 MG/ML 1 ML (4 MG) ONE (12:13)
[2019-06-09] MEDS ORDERED: Famotidine TAB* 20 MG ONE (12:13)
[2019-06-09] MEDS ORDERED: Buffered Lidocaine 1% SYRIN* 1 ML/SYRINGE INTRADERM ONE (12:14)
[2019-06-09] MEDS ORDERED: ceFAZolin 2 GM in NS PREMIX(*) 2 GM/100 ML BAG IVPB ONE (12:14)
[2019-06-09] MEDS ORDERED: fentaNYL* 50 MCG/ML 2 ML VIAL (100 MCG VIAL) ONE (12:26)
[2019-06-09] MEDS ORDERED: Midazolam* 1 MG/ML 2 ML VIAL (2 MG) ONE (12:26)
[2019-06-09] MEDS ORDERED: Bupivacaine 0.25% EPI 200,000* 30 ML SDV ONE (13:14)
[2019-06-09] MEDS ORDERED: fentaNYL* 50 MCG/ML 2 ML VIAL (100 MCG VIAL) IV PRN (13:28)
[2019-06-09] MEDS ORDERED: oxyCODONE/Acetamin 5/325 MG* TAB PO PRN (13:28)
[2019-06-09] MEDS ORDERED: DiMENhydriNATE IV* 50 MG/ML VIAL IV PUSH PRN (13:28)
[2019-06-09] MEDS ORDERED: Ketorolac INJ* 30 MG/ML 1 ML VIAL IV PRN (13:28)
[2019-06-09] MEDS ORDERED: Naloxone* 0.4 MG/ML 1 ML VIAL IV PRN (13:28)
[2019-06-09] MEDS ORDERED: Acetaminophen TAB* 325 MG PO PRN (13:28)
[2019-06-09] MEDS ORDERED: Ondansetron INJ* 2 MG/ML VIAL ONE (14:53)
[2019-06-09] MEDS ORDERED: Propofol* 10 MG/ML 20 ML BTL ONE (15:46)
[2019-06-09 16:34] VITALS: BP 148/97
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
== END 2019-06-09 17:29 | disposition home or self-care (01) ==
LOC: OR 11:52
PROVIDERS: ATTEND Orthopaedic Surgery
DX: S52.022K Displaced fracture of olecranon process without intraarticular extension of left ulna, subsequent encounter for closed fracture with nonunion (principal); T84.123A Displacement of internal fixation device of bone of left forearm, initial encounter; Y93.55 Activity, bike riding; V18.4XXD Pedal cycle driver injured in noncollision transport accident in traffic accident, subsequent encounter; Y92.9 Unspecified place or not applicable; G89.18 Other acute postprocedural pain; E78.5 Hyperlipidemia, unspecified; M19.90 Unspecified osteoarthritis, unspecified site
CPT/HCPCS: 76000; 88300; A9270-GY; C1713; C1776; J0690; J1100; J2250; J2405; J2704; J2795; J3010

== ENCOUNTER 2019-06-14 13:49 | Inpatient (IN) | payer MEDICARE, OTHER ==
[2019-06-14] MEDS ORDERED: NS 0.9% 1000 ML** 1,000 ML IV ONE (14:18)
[2019-06-14] MEDS ORDERED: Vancomycin(*) 1,500 MG in NS 0.9% 250 ML* 250 ML IVPB ONE (14:34)
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
[2019-06-14 14:48] LABS: ABS Basophils 0.1 10^3/ul (0-0.2); ABS Eosinophils 0.3 10^3/ul (0-0.6); ABS Lymphocytes 1.3 10^3/ul (1.0-4.8); ABS Monocytes 1.1 10^3/ul (0-0.8); Eosinophil % 2.5 %; Hematocrit 38 % (42-52); Hemoglobin 13.1 g/dL (14.0-18.0); Lymphocyte % 11.9 %; Mean Corpuscular HGB Conc 35 g/dL (31-36); Mean Corpuscular Hemoglobin 34 pg (27-31); Mean Corpuscular Volume 98 fL (80-94); Mean Platelet Volume 5.8 fL (7.4-10.4); Platelet Count 324 10^3/uL (150-450); Red Blood Count 3.86 10^6 /uL (4.18-5.48); Red Cell Distribution Width 13 % (10-15); White Blood Count 10.9 10^3/uL (3.5-10.8)
[2019-06-14 14:57] LABS: Activated Partial Thrombo Time 31.1 seconds (26.0-38.0); INR 1.01 (0.82-1.09)
[2019-06-14 15:05] LABS: Albumin 4.1 g/dL (3.2-5.2); Albumin/Globulin Ratio 1.2 (1-3); BUN/Creatinine Ratio 21.3 (8-20); C Reactive Protein 67.92 mg/L (<8.01); Calcium 9.6 mg/dL (8.6-10.3); EGFR African American 114.7 (>60); EGFR Non-African American 94.8 (>60); Globulin 3.3 g/dL (2-4); Total Bilirubin 0.6 mg/dL (0.2-1.0); Total Protein 7.4 g/dL (6.4-8.9)
[2019-06-14 16:01] LABS: Erythrocyte Sed Rate 60 mm/Hr (0-19)
[2019-06-14] MEDS ORDERED: diPHENhydraMINE IV* 50 MG/ML 1 ml VIAL (BENADRYL) ONE (17:05)
[2019-06-14] MEDS ORDERED: diPHENhydraMINE IV* 50 MG/ML 1 ml VIAL (BENADRYL) IV ONE (17:05)
[2019-06-14] MEDS ORDERED: HYDROcodone/ACETAMIN 5-325 MG* 1 TAB PO PRN ×2 (19:39→19:52)
[2019-06-14] MEDS ORDERED: Vancomycin per Pharmacy* NOTE FOLLOW UP SCH (20:00)
[2019-06-14] MEDS ORDERED: NS 0.9% 1000 ML** 1,000 ML IV SCH (20:00)
[2019-06-14] MEDS: Cefepime 1 GM in Dextrose(*) 1 GM/50 ML BAG IV SCH (20:25)
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
[2019-06-14] MEDS: Timolol 0.5% OPTH.SOL* BTL BOTH EYES SCH (21:33)
[2019-06-14] MEDS: HYDROcodone/ACETAMIN 5-325 MG* 1 TAB PO PRN (21:54)
[2019-06-14 21:56] LABS: Urine Appearance Clear; Urine Bilirubin Negative (Negative); Urine Blood Negative (Negative); Urine Color Straw; Urine Glucose Negative (Negative); Urine Ketones Negative (Negative); Urine Nitrite Negative (Negative); Urine Protein Negative (Negative); Urine Specific Gravity 1.006 (1.010-1.030); Urine Urobilinogen Negative (Negative)
[2019-06-15] MEDS: Vancomycin(*) 750 MG in NS 0.9% 250 ML* 250 ML IVPB SCH ×3 (00:35→16:20)
[2019-06-15] MEDS: HYDROcodone/ACETAMIN 5-325 MG* 1 TAB PO PRN ×2 (02:27→07:46)
[2019-06-15 05:30] LABS: ABS Basophils 0.1 10^3/ul (0-0.2); ABS Eosinophils 0.2 10^3/ul (0-0.6); ABS Lymphocytes 1.7 10^3/ul (1.0-4.8); ABS Monocytes 1.5 10^3/ul (0-0.8); ABS Neutrophils 7.1 10^3/ul (1.5-7.7); Eosinophil % 2.2 %; Hematocrit 34 % (42-52); Hemoglobin 11.6 g/dL (14.0-18.0); Mean Corpuscular HGB Conc 34 g/dL (31-36); Mean Corpuscular Hemoglobin 34 pg (27-31); Mean Corpuscular Volume 100 fL (80-94); Mean Platelet Volume 5.9 fL (7.4-10.4); Platelet Count 277 10^3/uL (150-450); Red Cell Distribution Width 12 % (10-15); White Blood Count 10.6 10^3/uL (3.5-10.8)
[2019-06-15 05:45] LABS: BUN/Creatinine Ratio 16.2 (8-20); Calcium 9.2 mg/dL (8.6-10.3); EGFR African American 125.5 (>60); EGFR Non-African American 103.7 (>60); Potassium 4.2 mmol/L (3.5-5.0)
[2019-06-15] MEDS: Cefepime 1 GM in Dextrose(*) 1 GM/50 ML BAG IV SCH ×2 (07:57→21:01)
[2019-06-15] MEDS: Timolol 0.5% OPTH.SOL* BTL BOTH EYES SCH ×2 (08:40→20:58)
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
--- NOTE | 2019-06-15 09:22 | PN ---
Subjective Date of Service: 06/15/19 Interval History: Mr. Luna states that he is feeling well today. He believes that there has been some reduction in the amount of swelling to his left elbow. He denies other complaint today. Objective Active Medications: Hydrocodone Bitart/Acetaminophen (Rozet 5-325 Tab*) 1 tab PO Q4H PRN Hydrocodone Bitart/Acetaminophen (Rozet 5-325 Tab*) 2 tab PO Q4H PRN Cefepime HCl (Maxipime 1 Gm In Dextrose Duplex (*)) 1 gm in 50 mls @ 100 mls/ hr IV Q12H SHEMAR Sodium Chloride (Ns 0.9% 1000 Ml) 1,000 mls @ 75 mls/hr IV PER RATE SHEMAR Vancomycin HCl 750 mg/ Sodium (Chloride) 250 mls @ 166.667 mls/hr IVPB Q8H SHEMAR Ketorolac Tromethamine (Toradol Tab *) 10 mg PO Q6H PRN Pharmacy Consult (Vancomycin Per Pharmacy*) 1 note FOLLOW UP .VANC PER PHARMACY SHEMAR; Protocol Pharmacy Profile Note (Vancomycin Trough Check) 1 note FOLLOW UP 0730 ONE Timolol Maleate (Timoptic 0.5% Opth*) 1 drop BOTH EYES BID SHEMAR Vital Signs: Temp Pulse Resp BP Pulse Ox 98.2 F 89 18 130/78 95 06/15/19 03:12 06/15/19 03:12 06/15/19 07:46 06/15/19 03:12 06/15/19 03:12 Oxygen Devices in Use Now: None Appearance: Male lying in bed in NAD Eyes: No Scleral Icterus Ears/Nose/Mouth/Throat: Mucous Membranes Moist Neck: Trachea Midline Respiratory: Symmetrical Chest Expansion and Respiratory Effort, Clear to Auscultation Cardiovascular: NL Sounds; No Murmurs; No JVD, No Edema Abdominal: NL Sounds; No Tenderness; No Distention Extremities: No Edema Skin: - - Erythema around incison site to left olecranon, outline marked today Neurological: Alert and Oriented x 3, NL Muscle Strength and Tone Nutrition: Taking PO's Result Diagrams: 06/15/19 05:21 06/15/19 05:21 Assess/Plan/Problems-Billing Assessment: Mr. Luna is a 73 yo M with a PMH of open fracture to his left elbow with removal of screw and placement of plate on 06/09/19 (due to loose screw) who was admitted on 06/14/19 with fevers and chills and concern for post-operative infection. - Patient Problems (1) Post-operative infection Comment: - No further fever, leukocytosis resolved, reduced swelling - Appreciate consult from Dr Dupree - Continue vancomycin and cefepime for now - Continue pain meds prn (2) DVT prophylaxis Comment: - SCDs. (3) Full code status Comment: Status and Disposition: Inpatient. Anticipate discharge to home when medically stable.
[2019-06-15] MEDS: Ketorolac TAB * 10 MG TAB PO PRN ×2 (11:37→20:57)
[2019-06-15] MEDS ORDERED: Acetaminophen TAB* 325 MG PO PRN (18:25)
[2019-06-15] MEDS ORDERED: Melatonin 3 MG TAB PO SCH (22:00)
[2019-06-16] MEDS: Vancomycin(*) 750 MG in NS 0.9% 250 ML* 250 ML IVPB SCH ×2 (00:28→11:08)
[2019-06-16] MEDS ORDERED: Vancomycin Trough Check NOTE FOLLOW UP ONE (07:30)
[2019-06-16] MEDS: Cefepime 1 GM in Dextrose(*) 1 GM/50 ML BAG IV SCH (08:30)
[2019-06-16] MEDS: Timolol 0.5% OPTH.SOL* BTL BOTH EYES SCH (08:30)
--- NOTE | 2019-06-16 11:03 | PN ---
Progress Note - Progress Note Date of Service: 06/16/19 SOAP: Subjective: 73 yo male, underwent a revision ORIF of a left open olecranon fracture last Saturday 06/09. Sunday developed more pain, swelling and rigors, and presented to the ED with an infection of the left elbow wound. Did not meet sepsis criteria, but due to impressive redness and swelling was admitted for IV antibiotics. Has been receiving IV abx for 40 hours now and it has helped. Dorsal elbow with less redness, swelling and pain. I had left the wound open to air to see if any drainage and there has been none for the past 36 + hours since the wound has been open to air. He has c/o intermittent pain which appears to be related to movement and has been well controlled by PRN 10 mg PO toradol. Objective: VSS: afebrile Left elbow: still with erythema about the wound, streak of non errythedimous skin now coming downwards parallel to the incision line. Swelling over the elbow has continued to decrease where only minimally swollen now. Can flex and extend elbow from 90 degrees to 30 degrees short of full extension without pain. Supination/pronation more limited, holds wrist/forearm in 45 degrees pronation, could come a little further into pronation with pain and to 30 degrees supination with pain. More swelling over the hand/dorsum wrist today, but can easily flex and extend wrist and flex/extend fingers. Assessment: Improving infection left elbow Plan: Blood cx are negative so far. Arm was re-splinted to improve pain and hopefully allow better hand motion/function. He would like to go home, but doesn't want to get into further troubles by leaving too early. Likely with h/ o MRSA and allergies, Bactrim will be added, but will coordinate with hospitalist service for abx regimen and discharge. He has an appointment Sunday at 3:30 for a post-op visit where suture removal and casting was the original plan. Will likely cast him then with waterproof materials and make a window to allow for continued monitoring of the wound/infection.
[2019-06-16 11:51] VITALS: BP 118/70
--- NOTE | 2019-06-16 23:21 | DS ---
CC: Dr. Corcoran; Dr. Dupree * DISCHARGE SUMMARY: DATE OF ADMISSION: 06/14/19 DATE OF DISCHARGE: 06/16/19 PRIMARY CARE PROVIDER: Dr. Corcoran. ORTHOPEDIST: Dr. Dupree. ATTENDING PHYSICIAN: Dr. Michaud.* (DICTATED BY ORTEGA INMAN) PRIMARY DIAGNOSIS: 1. Left elbow infection status post left olecranon fracture with open reduction and internal fixation on 05/23/19, screw removal/plate placement on . SECONDARY DIAGNOSES: 1. Hyperlipidemia. 2. Glaucoma. 3. History of left olecranon fracture, status post open reduction and internal fixation on 05/23/19, status post screw removal on 06/09/19 with plate placement with Dr. Dupree. CONSULTATIONS WHILE IN THE HOSPITAL: Dr. Dupree; Plan: 1. I hope this is a cellulitis and not a deep joint infection, which would need to be washed out, but this does not look like a joint infection, but rather an infection of the soft tissue likely from incision line. He has responded well to antibiotics and will likely be able to avoid a third surgery. 2. Wound cultures negative so far. He would like to go home. 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 He has an appointment on Sunday at 3:30. Blood cultures are negative so far. Arm was re-splinted to improve pain and hopefully allow better hand motion/function. STUDIES WHILE IN THE HOSPITAL: 1. Chest x-ray, impression: No evidence for pneumonia. Negative exam. 2. Left elbow x-ray, impression: Displaced anterior and posterior fat pads indicating joint effusion. No evidence for a fracture or loosening of cortical plate and screws traversing the intraarticular fracture involving the olecranon. Fracture plane remains visible. Negative for focal osteolysis or periosteal reaction to suggest osteomyelitis within limits of radiographic exam. Normal articular alignment. Soft tissue swelling through most marked over the dorsal aspect. DISCHARGE MEDICATIONS: Home Medications: 1. Lumigan 0.01% ophthalmic 1 drop to both eyes at bedtime. 2. Glucosamine and chondroitin cap, 2 caps p.o. q.a.m. 3. Rosuvastatin 5 mg p.o. q.a.m. 4. Timolol 0.5% ophthalmic solution 1 drop to both eyes b.i.d. Carlos Medications: 1. Hydrocodone/acetaminophen 5/325 one tab p.o. q.4 hours p.r.n. for pain, MDD 8, prescribed 5. 2. Bactrim DS 800/160 one tab p.o. b.i.d. starting tonight. HISTORY OF PRESENT ILLNESS/HOSPITAL COURSE: Mr. Luna is a 73-year-old male with a past medical history of hypertension and glaucoma who presented to the ER on 06/14/19 with complaints of new-onset rigors and fever. For full and complete details, please see history and physical dictated on 06/14/19 by Adeola Mata, but in short, he presented with fever, rigors, erythema to the left elbow at the surgical incision site from L olecranon ORIF on 05/23 with screw removal, plate placement 06/09. Dr. Dupree was consulted. The patient was started on cefepime and vancomycin. Blood cultures were obtained and he was continued on his home medications. Dr. Dupree assessed the patient and felt that he likely had a cellulitis versus deep joint infection. He recommended continued antibiotics with continued monitoring to look for improvement in cellulitis to determine the need for return to the OR. The patient continued to improve throughout his stay. He was afebrile with improved leukocytosis and decreased swelling. His range of motion was intact, further lending to the belief that this infection did not involve the joint. On the day of discharge, the patient's blood cultures are no growth to date. Dr. Dupree reassessed the left elbow and notes that swelling has decreased and range of motion has increased. He notes that there is still erythema about the wound. The patient will be transitioned to p.o. medication. He will be started on Bactrim, for MRSA and cellulitis coverage. At the time of discharge, the patient reports decreased pain and swelling on the left elbow. He notes that he has not required his [place] recently, but requested Toradol last night to help with sleeping. He continues to have left hand edema, but this has decreased. He denies chest pain, shortness of breath, cough, fever, abdominal pain, nausea, vomiting, diarrhea, or constipation. Mr. Luna is stable for discharge. REVIEW OF SYSTEMS: A 10-point review of systems has been performed and all the pertinent positives and negatives are in the HPI. All other systems are negative. PHYSICAL EXAMINATION: Vital signs are temperature 98.5 temporal, heart rate 68 , respiratory rate 18, oxygen saturation 100% on room air, blood pressure 118/ 70. General: Mr. Luna is a well-developed, well-nourished, healthy-appearing 73-year- old male who is sitting up in bed in his street clothes. He appears comfortable and in no acute distress. He has a left elbow splint with Ezra wrap and a right wrist splint in place. He is cooperative, appropriate, and pleasant. HEENT: The right pupil is dilated and nonreactive to light, which is chronic. EOMI. Nonicteric sclerae. Hearing grossly intact. Oral mucous membranes are moist. There are no lesions. Pharynx is clear. Cardiovascular: Regular rate and rhythm with S1, S2 present without murmurs, rubs, clicks, or gallops. There is no JVD. Respiratory: Symmetrical chest expansion without use of accessory muscles. Lungs are clear to auscultation bilaterally without rhonchi, wheezes, or rubs. Abdomen: Flat. Bowel sounds noted in all quadrants. The abdomen is soft without tenderness to palpation. There is no hepatosplenomegaly. Musculoskeletal: Bilateral lower extremities with full range of motion without pain or deformities. The right wrist has a hard cast that is in place. The left elbow has a splint in place with Ezra wrap in place, clean, dry, and intact. There is left peripheral edema of the hand. Neuro: The patient is awake. He is alert and oriented x3. He is able to move all his extremities. DISCHARGE PLAN: Mr. Luna will be discharged to home. CONDITION: Good. ACTIVITY: As tolerated. Keep left arm splinted and wrapped until appointment with Dr. Dupree on Sunday. DIET: Resume home diet. DISCHARGE MEDICATIONS: 1. Continue Bactrim twice daily starting tonight at 2100. 2. [place] given p.r.n. severe pain. EDUCATION: 1. Follow up with Dr. Dupree as scheduled on 06/18/19, at 1530. 2. Follow up with primary care provider in 4 to 7 days. 3. Return to the ER or nearest hospital if you experience any worsening of symptoms, shortness of breath, chest pain or discomfort, high fevers, chills, night sweats, dizziness, lightheadedness, loss of consciousness, or any other worrisome signs or symptoms. Return if there is any discharge from the wound, increase in swelling or pain, increase in redness. This is a summarized report of a complex medical history and hospital stay. For further details, please see the entire medical record. TIME SPENT: Approximately 40 minutes were spent on this discharge, greater than half that time was spent [id number] with the patient discussing discharge plans and instructions. ORTEGA INMAN [id number]/[facility] #: [id number] MTDStephanie
== END 2019-06-16 14:00 | disposition home or self-care (01) | DRG 603 ==
LOC: ED 13:49 → MED 18:36
PROVIDERS: ADMIT Internal Medicine; ATTEND Internal Medicine
DX: L03.114 Cellulitis of left upper limb (principal); E78.5 Hyperlipidemia, unspecified; H40.9 Unspecified glaucoma; B95.62 Methicillin resistant Staphylococcus aureus infection as the cause of diseases classified elsewhere; S52.022E Displaced fracture of olecranon process without intraarticular extension of left ulna, subsequent encounter for open fracture type I or II with routine healing; V19.9XXD Pedal cyclist (driver) (passenger) injured in unspecified traffic accident, subsequent encounter; Z79.899 Other long term (current) drug therapy; Z88.1 Allergy status to other antibiotic agents; Z88.8 Allergy status to other drugs, medicaments and biological substances; Z82.3 Family history of stroke
CPT/HCPCS: 36415; 71045; 80048; 80053; 80202; 81003; 83605; 84484; 85025; 85610; 85652; 85730; 86140; 86850; 86900; 86901; 87040; 87641; 93005; 99283; A9270-GY; J0692; J1200; J3370

== ENCOUNTER 2019-11-03 08:10 | Day surgery (SDC) | payer MEDICARE, OTHER ==
[~2019-11-03 08:10] MED LIST changes: -Dexamethasone IV* 4 MG/ML 1 ML (4 MG) IV SLOW PU ONE; +Famotidine IV* 10 MG/ML 2 ML (20 mg) IV ONE; -Famotidine TAB* 20 MG PO ONE
[2019-11-03] MEDS ORDERED: ceFAZolin 2 GM in NS PREMIX(*) 2 GM/100 ML BAG IVPB ONE (08:14)
[2019-11-03] MEDS ORDERED: Famotidine IV* 10 MG/ML 2 ML (20 mg) ONE (08:17)
[2019-11-03] MEDS ORDERED: Ketorolac INJ* 30 MG/ML 1 ML VIAL ONE (09:17)
[2019-11-03] MEDS ORDERED: Lidocaine 2% PF * 5 ML VIAL ONE (09:17)
[2019-11-03] MEDS ORDERED: Dexamethasone IV* 4 MG/ML 1 ML (4 MG) ONE (09:17)
[2019-11-03] MEDS ORDERED: KETAMINE HCL* 50 MG/ML 10 ML VIAL ONE (09:17)
[2019-11-03] MEDS ORDERED: Ondansetron INJ* 2 MG/ML VIAL ONE (09:17)
[2019-11-03] MEDS ORDERED: Propofol* 10 MG/ML 20 ML BTL ONE ×2 (09:17→12:08)
[2019-11-03] MEDS ORDERED: Cisatracurium* 2 MG/ML MDV 5 ML ONE (09:17)
[2019-11-03] MEDS ORDERED: fentaNYL* 50 MCG/ML 2 ML VIAL (100 MCG VIAL) ONE ×2 (09:17→12:36)
[2019-11-03] MEDS ORDERED: Midazolam* 1 MG/ML 5 ML VIAL (5 MG) ONE (09:18)
[2019-11-03] MEDS ORDERED: Vancomycin(*) 1,000 MG VIAL ONE (11:25)
[2019-11-03] MEDS ORDERED: Bupivacaine 0.25% EPI 200,000* 30 ML SDV ONE (11:25)
[2019-11-03] MEDS ORDERED: Naloxone* 0.4 MG/ML 1 ML VIAL IV PRN (12:03)
[2019-11-03] MEDS ORDERED: oxyCODONE/Acetamin 5/325 MG* TAB PO PRN (12:03)
[2019-11-03] MEDS ORDERED: Ondansetron INJ* 2 MG/ML VIAL IV PRN (12:03)
[2019-11-03] MEDS ORDERED: fentaNYL* 50 MCG/ML 2 ML VIAL (100 MCG VIAL) IV PRN (12:03)
[2019-11-03] MEDS ORDERED: oxyCODONE/Acetamin 5/325 MG* TAB ONE (12:36)
[2019-11-03 13:59] VITALS: BP 145/91
--- NOTE | 2019-11-04 01:56 | OP ---
OPERATIVE REPORT: DATE OF OPERATION: 11/03/19 - [facility] DATE OF : 45 SURGEON: Gary Dupree MD ANESTHESIOLOGIST: Jimbo Walsh MD ANESTHESIA: Local/MAC. PRE-OP DIAGNOSIS: Painful hardware, left elbow. POST-OP DIAGNOSIS: Painful hardware, left elbow. OPERATIVE PROCEDURE: Removal of hardware, left elbow. INDICATIONS: Mr. Luna is a 74-year-old male, who this past summer had sustained an open elbow fracture. His initial fixation had become displaced, so he underwent a revision ORIF which then became infected. This had turned out to be MRSA, but this had been suppressed and the wound did eventually close and he has been working on regaining motion. This has been going well but there was one small area which took quite some time to close. Because of that, I discussed with him that removing the plate should hopefully let us get ahead of this to make sure that nothing gets seated deeper into the bone. Risks of surgery such as continued infection, scar formation, and stiffness as well as re -fracture were discussed and he had wished to proceed. ESTIMATED BLOOD LOSS: Negligible. COMPLICATIONS: None. DESCRIPTION OF PROCEDURE: The patient was brought to the OR and sedation was given. Left arm was prepped and then draped. Incision was made directly over the old scar after infiltrating with approximately 15 cc of 0.25% Marcaine with epinephrine. Incision was made directly over the old scar and plate was relatively subcutaneous. Sherrill was then used to remove soft tissue and scar from the sides of the plate and screw heads became evident. Screws were removed and then the Sherrill was used to lever the plate off. When this was being done, he did feel this and then he was injected under the plate and then seemed to be much more comfortable. Plate was eventually removed. He had some small pockets of scar, which was typical for some of the unfilled screw holes and small rongeur was used to gently debride this. Curette was used to scrape the screw holes and with flexion and extension of the elbow, no fluid came out, so I was confident that the joint was not in continuity with the wound. 1 g of vancomycin was then mushed into the wound and up and into the screw holes, in case there should be something still sitting underneath the plate. Wound had been irrigated prior to this. Wound was then reapproximated using vertical mattress sutures with 3-0 nylon. Sterile dressing was applied and the patient was then awakened and stable on transfer to the recovery room. DISPOSITION/DISCHARGE SUMMARY: Mr. Luna is a 74-year-old male, who just underwent removal of plate from his left elbow. He tolerated the procedure well with no complications. He is here in the recovery room. Once he can tolerate p.o., has his pain well controlled and can void, he will be discharged home. Script for [place] should be delivered as the in-house bedside pharmacy delivery is still in service until about 3 p.m. today. He also gets Motrin instead as needed for pain. He may take down his dressing in 3 days, cover his sutures with a Baid- Aid, may shower, wash, and get the wound wet but should not soak it. I would like to see him in the office in approximately 10 to 14 days. We may end up keeping his sutures in for extra several days depending on how the wound looks. If there are any troubles or anything odd should occur, there are instructions to give the office a call. [id number]/[facility] #: [id number] EMIL
== END 2019-11-03 14:05 | disposition home or self-care (01) ==
LOC: OR 08:10
PROVIDERS: ATTEND Orthopaedic Surgery
DX: T84.84XA Pain due to internal orthopedic prosthetic devices, implants and grafts, initial encounter (principal); Y83.1 Surgical operation with implant of artificial internal device as the cause of abnormal reaction of the patient, or of later complication, without mention of misadventure at the time of the procedure; S52.03 Fracture of olecranon process with intraarticular extension of ulna; X58.XXXS Exposure to other specified factors, sequela; Y92.9 Unspecified place or not applicable; E78.5 Hyperlipidemia, unspecified; M19.90 Unspecified osteoarthritis, unspecified site
CPT/HCPCS: 88300; A9270-GY; J0690; J1100; J1885; J2250; J2405; J2704; J3010; J3370